=== PATIENT | male | born 1965 | race Caucasian/White ===

== ENCOUNTER 2019-04-04 07:52 | Day surgery (SDC) | payer OTHER ==
--- NOTE | 2019-04-03 15:20 | PREOPHP ---
DATE OF ADMISSION: 04/04/2019 HISTORY OF PRESENT ILLNESS: A 53-year-old male patient with a long history of middle ear infection w ith drainage. The patient was seen in the office on 07/2018 and was noted to have chronic right otit is perforation. The patient was treated medically with resolution of drainage. The patient has pers istent right tympanic membrane perforation, now admitted to the hospital for corrective right ear coleen farzana. PAST MEDICAL HISTORY: Negative. ALLERGIES: Negative. DAILY MEDICATIONS: Negative. MEDICAL CONDITIONS: Negative. PRIOR OPERATIONS: Negative. CLOTTING DISORDERS: Negative. FAMILY HISTORY: Negative. REVIEW OF SYSTEMS: Negative. HABITS: Alcohol, tobacco, recreational drugs: None. PHYSICAL EXAMINATION: GENERAL: Well-developed, well-nourished male patient in no acute distress. HEENT: Head: Normocephalic. No masses or deformities. Ears and tympanic membranes: There is a ce ntral dry right tympanic membrane perforation. Nose: Clear. Oropharynx: Clear. NECK: No masses or adenopathy. CHEST: Clear to P and A. HEART: Regular sinus rhythm without murmur. ABDOMEN: Soft. Bowel sounds are normal. No masses or megaly. EXTREMITIES: Full range of motion without deformity. NEUROLOGIC: Physiologic. RECTAL: Not done. IMPRESSION: Right otitis perforation. RECOMMENDATIONS: Admit for surgery. Dictated By: NATACHA TOLENTINO/ROMINA Conf#: [id number] DID#: [id number]
[2019-04-04] VITALS (12 sets, daily range): BP systolic 108–136; BP diastolic 76–100; PULSE 62–68; RESP 13–18; Ht 165.1 cm; Wt 63.3 kg
[~2019-04-04] VITALS: Ht 165.1 cm; Wt 63.3 kg
[2019-04-04] MEDS ORDERED: LACTATED RINGER'S 1,000 ML IV SCH (10:00)
[2019-04-04] MEDS ORDERED: GELATIN SIZE 100 SPONGE ONE (10:31)
[2019-04-04] MEDS ORDERED: LIDOCAINE 1%/EPI 30 ML INJ ONE (10:31)
[2019-04-04] MEDS ORDERED: EPINEPHrine 1 MG INJ ONE (10:34)
--- NOTE | 2019-04-04 10:42 | PREAC ---
Date/Time of Note Date/Time of Note DATE: 04/04/19 TIME: 10:40 Anesthesia Eval and Record Evaluation Time Pre-Procedure Interview DATE: 04/04/19 TIME: 10:40 Age 53 Sex male NPO: 8 hrs Preoperative diagnosis Rt ear perforated tympanic membrane Planned procedure Rt ear tympanoplasty Past Medical History Past Medical History: None Surgery & Anesthesia Issues No known issue Meds Anticoagulation: No Beta Lacie within 24 hr: No Reason Beta Lacie not given: Pt. not on B-Lacie No Active Prescriptions or Reported Meds Current Medications Lactated Ringer's 1,000 ml @ 0 mls/hr Q0M IV ; Start 04/04/19 at 10:00 Meds reviewed: Yes Allergies Coded Allergies: No Known Allergies (Unverified Allergy, Unknown, 04/04/19) Allergies Reviewed: Yes Labs/Studies Labs Reviewed: Reviewed by anesthesiologist test: N/A Studies: ECG Pre-procedure Exam Last vitals Vital Signs Date Temp Pulse Resp B/P (MAP) Pulse Ox O2 O2 Flow FiO2 Time Delivery Rate 04/04/19 97.6 62 16 130/100 98 Room Air 09:40 (110) Airway: Adequate mouth opening, Adequate thyromental dist Mallampati: Mallampati II Teeth: Normal Lung: Normal Heart: Normal ASA Physical Status ASA physical status: 2 Emergency: None Planned Anesthetic General/MAC: LMA Planned Pain Management Parenteral pain med Pre-operative Attestations Prior to commencing anesthesia and surgery, the patient was re-evaluated, there was verification of: *The patient's identity *The results of appropriate recent lab work and preoperative vital signs *The above evaluation not changing prior to induction *Anesthetic plan, risk benefits, alternative and complications discussed with patient/family; questions answered; patient/family understands, accepts and wishes to proceed. ROSSY NUÑEZ MD Apr 04, 2019 10:42
[2019-04-04] MEDS ORDERED: FENTAnyl 50 MCG/ML VIAL ONE (10:55)
[2019-04-04] MEDS ORDERED: MIDAZOLAM 1 MG/ML 2 ML INJ ONE (10:55)
[2019-04-04] MEDS ORDERED: ONDANSETRON 4 MG INJ ONE ×2 (11:45→12:06)
[2019-04-04] MEDS ORDERED: LIDOCAINE 2% (SDV) 5 ML INJ ONE (11:45)
[2019-04-04] MEDS ORDERED: PROPOFOL 20 ML ONE (11:45)
--- NOTE | 2019-04-04 11:53 | SIPON ---
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
--- NOTE | 2019-04-04 11:58 | PAC ---
Date/Time of Note Date/Time of Note DATE: 04/04/19 TIME: 11:57 Post-Anesthesia Notes Post-Anesthesia Note Last documented vital signs Vital Signs Date Temp Pulse Resp B/P (MAP) Pulse Ox O2 O2 Flow FiO2 Time Delivery Rate 04/04/19 97.6 62 16 130/100 98 Room Air 09:40 (110) Activity: WNL Respiratory function: WNL Cardiovascular function: WNL Mental status: Baseline Pain reasonably controlled: Yes Hydration appropriate: Yes Nausea/Vomiting absent: Yes Comments BP:134/67, P;78, Spo2:100%, T:98,8 ROSSY NUÑEZ MD Apr 04, 2019 11:58
[2019-04-04] MEDS ORDERED: MEPERIDINE 25 MG INJ ONE (12:06)
[2019-04-04] MEDS ORDERED: MEPERIDINE 25 MG INJ IV PRN (12:30)
[2019-04-04] MEDS ORDERED: FENTAnyl 50 MCG/ML VIAL IV PRN (12:30)
[2019-04-04] MEDS ORDERED: ONDANSETRON 4 MG INJ IV PRN (12:30)
[2019-04-04] MEDS ORDERED: DIPHENHYDRAMINE 50 MG INJ IV PRN (12:30)
[2019-04-04] MEDS ORDERED: METOCLOPRAMIDE 10 MG INJ IV PRN (12:30)
[2019-04-04] MEDS ORDERED: HYDROmorphONE 1 MG/5 ML IV SYRINGE IV PRN ×2 (12:30)
[2019-04-04] MEDS ORDERED: HYDROCODONE/APAP (7.5/325) TAB PO PRN (13:00)
--- NOTE | 2019-04-04 13:59 | OPR ---
DATE OF OPERATION: 04/04/2019 PREOPERATIVE DIAGNOSIS: Chronic right otitis perforata. POSTOPERATIVE DIAGNOSIS: Chronic right otitis perforata. PROCEDURE PERFORMED: Tympanoplasty. OPERATION: The patient was brought to the operating room under parenteral sedation, general anesthes ia by LMA. Right ear was prepped and draped for ear surgery and examined with the [employer] operating mi croscope. There was a kidney-shaped subtotal tympanic membrane perforation. The ear canals were blo cked with Xylocaine 1% epinephrine 1:100,000 injectable. Using Bang needle and cup forceps, the mar gins of the perforation and the lateral tympanic membrane epithelium was debrided bluntly and sharply . The middle ear was then filled with dry Gelfoam. An allograft of intestinal membrane was then bro ught into the operative field and soaked according to the standard fashion and then placed as a later al graft and medial graft covering all margins of the perforation. The graft was slit radially to ac commodate the manubrium of the malleus. The middle ear was then filled with dry Gelfoam. A light co tton dressing and Band-Aid was applied and the procedure was terminated. The patient was awakened an d extubated in the operating room and returned to recovery in excellent condition. ESTIMATED BLOOD LOSS: Nil. COMPLICATIONS: None. Dictated By: NATACHA TOLENTINO/ROMINA Conf#: [id number] DID#: [id number]
--- NOTE | 2019-04-04 14:21 | RADRPT ---
Vent Rate: 56 bpm RR Interval: 1080 msec NV Interval: 163 msec QRS Duration: 87 msec QT Interval: 400 msec QTC Interval: 385 msec P-R-T [place]: 45 - 49 - 35 degrees Sinus rhythm...normal P axis, V-rate 50- 99 Electronically Signed By: Tian Penaloza
== END 2019-04-04 13:30 | disposition home or self-care (01) ==
LOC: SDS 07:52
PROVIDERS: ATTEND Otolaryngology Otolaryngology/Facial Plastic Surgery
DX: H66.91 Otitis media, unspecified, right ear (principal)
CPT/HCPCS: 69436; 93005; J0171; J2175; J2250; J2405; J3010; Z7512; Z7610

== ENCOUNTER 2019-08-27 06:47 | Day surgery (SDC) | payer OTHER ==
[~2019-08-27] VITALS: Ht 162.6 cm; Wt 63.5 kg
[2019-08-27] VITALS (13 sets, daily range): BP systolic 117–143; BP diastolic 69–94; PULSE 68–76; RESP 16–23; Ht 162.6 cm; Wt 63.5 kg
[2019-08-27] MEDS ORDERED: LACTATED RINGER'S 1,000 ML IV SCH (07:25)
[2019-08-27] MEDS ORDERED: LIDOCAINE 1%/EPI 30 ML INJ ONE (10:09)
[2019-08-27] MEDS ORDERED: COCAINE 4% 4 ML TOP ONE (10:09)
[2019-08-27] MEDS ORDERED: MIDAZOLAM 1 MG/ML 2 ML INJ ONE (10:25)
[2019-08-27] MEDS ORDERED: FENTAnyl 50 MCG/ML VIAL ONE (10:28)
[2019-08-27] MEDS ORDERED: DIPHENHYDRAMINE 50 MG INJ IV PRN (10:30)
[2019-08-27] MEDS ORDERED: FENTAnyl 50 MCG/ML VIAL IV PRN ×2 (10:30)
[2019-08-27] MEDS ORDERED: SEVOFLURANE 15 MIN ONE (10:30)
[2019-08-27] MEDS ORDERED: hydrALAzine 20 MG INJ IV PRN (10:30)
[2019-08-27] MEDS ORDERED: ONDANSETRON 4 MG INJ IV PRN (10:30)
[2019-08-27] MEDS ORDERED: EPHEDrine 25 MG/5 ML SYG IV PRN (10:30)
[2019-08-27] MEDS ORDERED: OXYCODONE/ACETAMINOPHEN (5/325) TAB PO PRN (10:30)
[2019-08-27] MEDS ORDERED: LABETALOL HCL 20MG INJ IV PRN (10:30)
[2019-08-27] MEDS ORDERED: MEPERIDINE 25 MG INJ IV PRN (10:30)
[2019-08-27] MEDS ORDERED: HYDROmorphONE 1 MG/5 ML IV SYRINGE IV PRN ×3 (10:30)
[2019-08-27] MEDS ORDERED: PROPOFOL 20 ML ONE (10:37)
[2019-08-27] MEDS ORDERED: SUCCINYLCHOLINE CHLORIDE 100 MG/5 ML SYG IV ONE (10:37)
[2019-08-27] MEDS ORDERED: DEXAMETHASONE 4 MG/ML 5 ML INJ ONE ×2 (10:37→12:48)
[2019-08-27] MEDS ORDERED: ROCURONIUM 50 MG INJ ONE ×2 (10:37→12:48)
[2019-08-27] MEDS ORDERED: FAMOTIDINE 20 MG INJ ONE (10:37)
[2019-08-27] MEDS ORDERED: ONDANSETRON 4 MG INJ ONE ×2 (10:37→12:48)
[2019-08-27] MEDS ORDERED: LIDOCAINE 2% (SDV) 5 ML INJ ONE (10:37)
[2019-08-27] MEDS ORDERED: EPHEDrine 25 MG/5 ML SYG ONE ×2 (10:54→10:55)
[2019-08-27] MEDS ORDERED: GLYCOPYRROLATE 0.4 MG INJ ONE (11:33)
[2019-08-27] MEDS ORDERED: NEOSTIGMINE 3 MG/3 ML SYRINGE ONE (11:33)
[2019-08-27] MEDS ORDERED: HYDROCODONE/APAP (10/325) TAB PO PRN (14:30)
== END 2019-08-27 14:05 | disposition home or self-care (01) ==
LOC: SDS 06:47
PROVIDERS: ATTEND Otolaryngology Otolaryngology/Facial Plastic Surgery
DX: J34.2 Deviated nasal septum (principal); J34.3 Hypertrophy of nasal turbinates; L90.5 Scar conditions and fibrosis of skin
CPT/HCPCS: 14060; 30140; 30520; 88300; 88304; 93005; J1100; J2250; J2405; J2710; J3010; Z7512; Z7610